=== PATIENT | male | born 1955 | race Caucasian/White ===

== ENCOUNTER 2017-01-10 08:17 | Inpatient (IN) | payer OTHER ==
[2017-01-10 09:00] VITALS: BMI 29.5
--- NOTE | 2017-01-10 11:03 | HP ---
COWS - Scale Resting Pulse: 1= [place] 81-100 Sweatin=Flushed/Facial Moisture Restless Observation: 1= Difficult to Sit Still Pupil Size: 0= Normal to Room Light Bone or Joint Aches: 2= Severe Diffuse Aches Runny Nose/ Eye Tearin= Runny Nose/Eyes GI Upset > 30mins: 0= None Tremor Observation: 2= Slight Tremor Visible Yawning Observation: 2= >3x During Session Anxiety or Irritability: 2=Irritable/Anxious Goose Flesh Skin: 3=Piloerection COWS Score: 17 CIWA Score - CIWA Score Nausea/Vomitin-No Nausea/No Vomiting Muscle Tremors: 4-Moderate,w/Arms Extend Anxiety: 3 Agitation: 4-Moderately Restless Paroxysmal Sweats: 3 Orientation: 0-Oriented Tacttile Disturbances: 0-None Auditory Disturbances: 0-None Visual Disturbances: 0-None Headache: 1-Very Mild CIWA-Ar Total Score: 15 Admission ROS BHS - HPI Chief Complaint: I need help. Allergies/Adverse Reactions: Allergies Allergy/AdvReac Type Severity Reaction Status Date / Time No Known Allergies Allergy Verified 01/10/17 10:29 History of Present Illness: pt is a 61yr old male with a history of oxycodone and alcohol dependence seeking detox for treatment. This is his first visit in detox. Exam Limitations: No Limitations - Ebola screening Have you traveled outside of the country in the last 21 days: No Have you had contact with anyone from an Ebola affected area: No Have you been sick,other than usual withdrawal symptoms: No Do you have a fever: No - Review of Systems Constitutional: Chills, Night Sweats EENT: reports: No Symptoms Reported Respiratory: reports: No Symptoms reported Cardiac: reports: No Symptoms Reported GI: reports: Constipated, Poor Fluid Intake : reports: No Symptoms Reported Musculoskeletal: reports: Back Pain Integumentary: reports: Flushing, Sweating Neuro: reports: Tingling, Tremors Endocrine: reports: Excessive Sweating, Flushing, Intolerance to Cold, Intolerance to Heat Hematology: reports: No Symptoms Reported Psychiatric: reports: Judgement Intact, Mood/Affect Appropiate, Orientated x3, Agitated, Anxious Other Systems: Reviewed and Negative Patient History - Patient Medical History Hx Asthma: No Hx Chronic Obstructive Pulmonary Disease (COPD): No Hx Cancer: No Hx Cardiac Disorders: No Hx Hypertension: Yes Hx Hypercholesterolemia: Yes Hx Pacemaker: No HX Cerebrovascular Accident: No Hx Seizures: No Hx Dementia: No Hx Diabetes: No Hx Gastrointestinal Disorders: No Hx Liver Disease: No Hx Genitourinary Disorders: No Hx Sexually Transmitted Disorders: No Hx Renal Disease (ESRD): No Hx Thyroid Disease: No Hx Human Immunodeficiency Virus (HIV): No (negative) Hx Hepatitis C: No (negative) Hx Depression: No Hx Suicide Attempt: No (denies) Hx Bipolar Disorder: No Hx Schizophrenia: No - Patient Surgical History Past Surgical History: No Hx Neurologic Surgery: No Hx Cataract Extraction: No Hx Cardiac Surgery: No Hx Lung Surgery: No Hx Breast Surgery: No Hx Breast Biopsy: No Hx Abdominal Surgery: No Hx Appendectomy: No Hx Cholecystectomy: No Hx Genitourinary Surgery: No Hx Section: No Hx Orthopedic Surgery: No Other Surgical History: laminectomy surgery 07/2016 Anesthesia Reaction: No - PPD History Previous Implant?: Yes Documented Results: Negative w/o proof Implanted On Prior R Admission?: No PPD to be Administered?: Yes - Reproductive History Patient is a Female of Child Bearing Age (11 -55 yrs old): No - Smoking Cessation Smoking history: Current every day smoker Have you smoked in the past 12 months: Yes Aproximately how many cigarettes per day: 4 Hx Chewing Tobacco Use: No Initiated information on smoking cessation: Yes 'Breaking Loose' booklet given: 01/10/17 - Substance & Tx. History Hx Alcohol Use: Yes Hx Substance Use: Yes Substance Use Type: Alcohol, Opiates Hx Substance Use Treatment: No - Substances Abused Oxycodone Route: Oral Frequency: Daily Amount used: 1-2 tabs. (30 mg.) Age of first use: 61 Date of Last Use: 01/09/17 Alcohol-vodla Route: Oral Amount used: 3/4 pt. Age of first use: 29 Date of Last Use: 01/09/17 Family Disease History - Family Disease History Family Disease History: Heart Disease: Father () Admission Physical Exam BHS - Vital Signs Vital Signs: Vital Signs - 24 hr 01/10/17 01/10/17 08:42 08:56 Temperature 97 F L 97.3 F L Pulse Rate 100 H 60 Respiratory 18 18 Rate Blood Pressure 174/90 160/84 - Physical General Appearance: Yes: Appropriately Dressed, Moderate Distress, Obese, Tremorous, Irritable, Sweating, Anxious HEENTM: Yes: Hearing grossly Normal, Normal Voice Respiratory: Yes: Lungs Clear, Normal Breath Sounds, No Respiratory Distress Neck: Yes: Within Normal Limits Breast: Yes: Within Normal Limits Cardiology: Yes: Regular Rhythm, Regular Rate, S1, S2 Abdominal: Yes: Normal Bowel Sounds Genitourinary: Yes: Within Normal Limits Back: Yes: Normal Inspection Musculoskeletal: Yes: Back pain Extremities: Yes: Normal Capillary Refill, Normal Inspection, Non-Tender, Tremors Neurological: Yes: Fully Oriented, Alert, Normal Response Integumentary: Yes: Normal Color, Diaphoresis Lymphatic: Yes: Within Normal Limits - Diagnostic (1) Alcohol dependence with uncomplicated withdrawal Current Visit: Yes Status: Chronic (2) Hyperlipidemia Current Visit: Yes Status: Chronic Qualifiers: Hyperlipidemia type: pure hypercholesterolemia Qualified Code(s): E78.00 - Pure hypercholesterolemia, unspecified; E78.0 - Pure hypercholesterolemia (3) Hypertension Current Visit: Yes Status: Chronic Qualifiers: Hypertension type: essential hypertension Qualified Code(s): I10 - Essential (primary) hypertension (4) Neuropathy Current Visit: Yes Status: Chronic (5) Nicotine dependence Current Visit: Yes Status: Chronic Qualifiers: Nicotine product type: cigarettes Substance use status: uncomplicated Qualified Code(s): F17.210 - Nicotine dependence, cigarettes, uncomplicated (6) Opioid dependence with withdrawal Current Visit: Yes Status: Chronic (7) Obese Current Visit: Yes Status: Chronic Qualifiers: Obesity type: unspecified obesity type Cleared for Admission S - Detox or Rehab [facility] Level of Care: Medically Managed Detox Regimen/Protocol: Methadone/Librium S Breath Alcohol Content Breath Alcohol Content: 0 Urine Drug Screen - Results Drug Screen Negative: No Urine Drug Screen Results: RAVEN-Cocaine, OPI-Opiates
[2017-01-10] MEDS ORDERED: LOPERAMIDE HCL 2 MG CAPSULE PO PRN (11:14)
[2017-01-10] MEDS ORDERED: chlordiazePOXIDE HCL 25 MG CAPSULE PO PRN (11:14)
[2017-01-10] MEDS ORDERED: ACETAMINOPHEN 325 MG TABLET (FP) PO PRN (11:14)
[2017-01-10] MEDS ORDERED: hydrOXYzine PAMOATE 50 MG CAPSULE (FP) PO PRN (11:14)
[2017-01-10] MEDS ORDERED: guaiFENesin/D-METHORPHAN HB 10 ML UNIT-DOSE CUPS PO PRN (11:14)
[2017-01-10] MEDS ORDERED: MAGNESIUM CITRATE 300 ML BOTTLE PO PRN (11:14)
[2017-01-10] MEDS ORDERED: P-EPHED 60MG/TRIPROLIDI 2.5MG TABLET PO PRN (11:14)
[2017-01-10] MEDS ORDERED: IBUPROFEN 400 MG TABLET (FP) PO PRN (11:14)
[2017-01-10] MEDS ORDERED: MENTHOL/PHENOL 1 EACH UD MM PRN (11:14)
[2017-01-10] MEDS ORDERED: MAG HYDROX/AL HYDROX/SIMETH 30 ML UNIT-DOSE CUP PO PRN (11:14)
[2017-01-10] MEDS ORDERED: MAGNESIUM HYDROX 2400MG/30ML ORAL SUSPENSION 30 ML CUP PO PRN (11:14)
[2017-01-10] MEDS ORDERED: chlordiazePOXIDE HCL 25 MG CAPSULE PO ONE (11:37)
[2017-01-10] MEDS ORDERED: METHADONE HCL 10 MG TABLET (FOR DETOX USE ONLY) PO ONE ×2 (11:38→23:00)
[2017-01-10 13:45] LABS: MCH 30.3 pg (25.7-33.7); MCHC 33.2 g/dl (32.0-35.9); MEAN CELL VOLUME 91.3 fl (80-96); MEAN PLT VOLUME 8.1 fl (7.5-11.1); PLATELET COUNT 243 K/MM3 (134-434); RDW 14.4 % (11.9-15.9); WHITE BLOOD COUNT 9.1 K/mm3 (4.0-10.0)
[2017-01-10 13:58] LABS: ANION GAP 7 (8-16); CALCIUM 9.2 mg/dL (8.5-10.1); CO2 30 mmol/L (21-32); GLUCOSE,RANDOM 150 mg/dL (74-106)
[2017-01-10 14:02] LABS: ALK PHOS 104 U/L (45-117); BILIRUBIN,TOTAL 0.6 mg/dL (0.2-1.0); CREATININE 1.1 mg/dL (0.7-1.3); SGOT/AST 72 U/L (15-37); SGPT/ALT 88 U/L (12-78); TOT PROT 7.6 g/dl (6.4-8.2)
[2017-01-10 15:38] LABS: THYROID STIMULATING HORMONE 0.93 uIU/ml (0.358-3.74)
[2017-01-10 17:03] LABS: URINE APPEARANCE CLEAR; URINE BILIRUBIN NEGATIVE (NEGATIVE); URINE BLOOD NEGATIVE (NEGATIVE); URINE COLOR YELLOW; URINE GLUCOSE (UA) NEGATIVE (NEGATIVE); URINE KETONE NEGATIVE (NEGATIVE); URINE LEUK ESTERASE NEGATIVE (NEGATIVE); URINE NITRITE NEGATIVE (NEGATIVE); URINE PROTEIN NEGATIVE (NEGATIVE); URINE UROBILINOGEN NEGATIVE mg/dL (0.2-1.0)
--- NOTE | 2017-01-10 17:47 | EKG ---
Test Reason : Blood Pressure : / mmHG Vent. Rate : 090 BPM Atrial Rate : 090 BPM P-R Int : 178 ms QRS Dur : 098 ms QT Int : 362 ms P-R-T Axes : 068 063 046 degrees QTc Int : 442 ms NORMAL SINUS RHYTHM INCOMPLETE RIGHT BUNDLE BRANCH BLOCK BORDERLINE ECG NO PREVIOUS ECGS AVAILABLE Confirmed by REGI CAMP, GRACIE ([id number]) on 01/10/2017 5:46:50 PM Referred By: Confirmed By:GRACIE DELUNA MD
[2017-01-10] MEDS: chlordiazePOXIDE HCL 25 MG CAPSULE PO SCH ×2 (17:55→22:39)
[2017-01-10] MEDS: NICOTINE POLACRILEX 4 MG GUM BUC PRN ×2 (18:30→22:51)
[2017-01-10] MEDS: THIAMINE HCL 100 MG TABLET (FP) PO SCH (22:39)
[2017-01-10] MEDS: DOCUSATE SODIUM 100 MG CAPSULE (FP) PO SCH (22:39)
[2017-01-10] MEDS: GABAPENTIN 300 MG CAPSULE (FP) PO SCH (22:39)
[2017-01-10] MEDS: ATORVASTATIN CA 40 MG TABLET (FP) PO SCH (22:39)
[2017-01-10] MEDS: diphenhydrAMINE HCL 50 MG CAPSULE PO PRN (22:41)
[2017-01-11] MEDS: diphenhydrAMINE HCL 50 MG CAPSULE PO PRN (00:35)
[2017-01-11] MEDS: CYCLOBENZAPRINE HCL 10 MG TABLET (FP) PO PRN ×2 (01:40→22:08)
[2017-01-11] MEDS: chlordiazePOXIDE HCL 25 MG CAPSULE PO SCH (04:48)
--- NOTE | 2017-01-11 09:56 | PN ---
[facility] CIWA - CIWA Score Nausea/Vomitin Muscle Tremors: 3 Anxiety: 3 Agitation: 3 Paroxysmal Sweats: 1-Minimal Palms Moist Orientation: 0-Oriented Tacttile Disturbances: 1-Very Mild Itch/Numbness Auditory Disturbances: 1-Very Mild Visual Disturbances: 1-Very Mild Sensitivity Headache: 2-Mild CIWA-Ar Total Score: 18 BHS COWS - Scale Resting Pulse: 1= [place] 81-100 Sweatin= Chills/Flushing Restless Observation: 3= Extraneous Movement Pupil Size: 1= Pupils >than Normal Bone or Joint Aches: 2= Severe Diffuse Aches Runny Nose/ Eye Tearin= Runny Nose/Eyes GI Upset > 30mins: 2= Nausea/Diarrhea Tremor Observation of Outstretched Hands: 2= Slight Tremor Visible Yawning Observation: 2= >3x During Session Anxiety or Irritability: 2=Irritable/Anxious Goose Flesh Skin: 0=Smooth Skin COWS Score: 18 [facility] Progress Note (SOAP) Subjective: ALERT,IRRITABLE,ANXIOUS,INTERRUPTED SLEEP,PAIN IN THE BODY AND BACK Objective: 01/11/17 09:52 Vital Signs Temperature 96 F L 01/11/17 06:12 Pulse Rate 83 01/11/17 06:12 Respiratory Rate 18 01/11/17 06:12 Blood Pressure 119/79 01/11/17 06:12 O2 Sat by Pulse Oximetry (%) EKG NSR,INCOMPLETE RBBB NO CHEST PAIN,NO SOB,NO DIZZINESS 01/11/17 09:53 Laboratory Last Values WBC 9.1 K/mm3 (4.0-10.0) 01/10/17 11:50 RBC 4.81 M/mm3 (4.00-5.60) 01/10/17 11:50 Hgb 14.6 GM/dL (11.7-16.9) 01/10/17 11:50 Hct 43.9 % (35.4-49) 01/10/17 11:50 MCV 91.3 fl (80-96) 01/10/17 11:50 MCH 30.3 pg (25.7-33.7) 01/10/17 11:50 MCHC 33.2 g/dl (32.0-35.9) 01/10/17 11:50 RDW 14.4 % (11.9-15.9) 01/10/17 11:50 Plt Count 243 K/MM3 (134-434) 01/10/17 11:50 MPV 8.1 fl (7.5-11.1) 01/10/17 11:50 Sodium 138 mmol/L (136-145) 01/10/17 11:50 Potassium 3.9 mmol/L (3.5-5.1) 01/10/17 11:50 Chloride 101 mmol/L (98-107) 01/10/17 11:50 Carbon Dioxide 30 mmol/L (21-32) 01/10/17 11:50 Anion Gap 7 (8-16) L 01/10/17 11:50 BUN 17 mg/dL (7-18) 01/10/17 11:50 Creatinine 1.1 mg/dL (0.7-1.3) 01/10/17 11:50 Creat Clearance w eGFR > 60 (>60) 01/10/17 11:50 Random Glucose 150 mg/dL (74-106) H 01/10/17 11:50 Calcium 9.2 mg/dL (8.5-10.1) 01/10/17 11:50 Total Bilirubin 0.6 mg/dL (0.2-1.0) 01/10/17 11:50 AST 72 U/L (15-37) H 01/10/17 11:50 ALT 88 U/L (12-78) H 01/10/17 11:50 Alkaline Phosphatase 104 U/L (45-117) 01/10/17 11:50 Total Protein 7.6 g/dl (6.4-8.2) 01/10/17 11:50 Albumin 4.0 g/dl (3.4-5.0) 01/10/17 11:50 TSH 0.93 uIU/ml (0.358-3.74) 01/10/17 11:50 Urine Color Yellow 01/10/17 14:00 Urine Appearance Clear 01/10/17 14:00 Urine pH 5.0 (5.0-8.0) 01/10/17 14:00 Ur Specific [place] 1.025 (1.005-1.025) 01/10/17 14:00 Urine Protein Negative (NEGATIVE) 01/10/17 14:00 Urine Glucose (UA) Negative (NEGATIVE) 01/10/17 14:00 Urine Ketones Negative (NEGATIVE) 01/10/17 14:00 Urine Blood Negative (NEGATIVE) 01/10/17 14:00 Urine Nitrite Negative (NEGATIVE) 01/10/17 14:00 Urine Bilirubin Negative (NEGATIVE) 01/10/17 14:00 Urine Urobilinogen Negative mg/dL (0.2-1.0) 01/10/17 14:00 Ur Leukocyte Esterase Negative (NEGATIVE) 01/10/17 14:00 RPR Titer Nonreactive (NONREACTIVE) 01/10/17 11:50 Hepatitis C Antibody 0.2 s/co ratio (0.0-0.9) 01/10/17 11:50 Assessment: 01/11/17 09:54 WITHDRAWAL SYMPTOM Plan: CONTINUE DETOX,WOULD LIKE REGIMEN TO CHANGE TO METHADONE AND VALIUM,FASTING GLUCOSE IN AM INITIAL GLUCOSE IS 150
[2017-01-11] MEDS ORDERED: diazePAM 5 MG TABLET PO ONE (09:58)
[2017-01-11] MEDS ORDERED: METHADONE HCL 10 MG TABLET (FOR DETOX USE ONLY) PO SCH (10:00)
[2017-01-11] MEDS: PRENATAL VITAMINS W/ FOLIC ACID TABLET (FP) PO SCH (11:56)
[2017-01-11] MEDS: NICOTINE 21 MG/24 HOURS TOPICAL PATCH TD SCH (11:57)
[2017-01-11] MEDS: LISINOPRIL 20 MG TABLET (FP) PO SCH (11:57)
[2017-01-11] MEDS: HYDROCHLOROTHIAZIDE 12.5 MG CAPSULE (FP) PO SCH (11:57)
[2017-01-11] MEDS: ASPIRIN 81 MG CHEWABLE TABLETS PO SCH (11:57)
[2017-01-11] MEDS: diazePAM 5 MG TABLET PO SCH ×2 (13:57→22:09)
[2017-01-11] MEDS ORDERED: chlordiazePOXIDE HCL 25 MG CAPSULE PO SCH (17:00)
[2017-01-11] MEDS: diazePAM 5 MG TABLET PO PRN (17:43)
[2017-01-11] MEDS: NICOTINE POLACRILEX 4 MG GUM BUC PRN ×2 (18:03→22:09)
[2017-01-11] MEDS: GABAPENTIN 300 MG CAPSULE (FP) PO SCH (22:08)
[2017-01-11] MEDS: ATORVASTATIN CA 40 MG TABLET (FP) PO SCH (22:08)
[2017-01-11] MEDS: THIAMINE HCL 100 MG TABLET (FP) PO SCH (22:08)
[2017-01-11] MEDS: DOCUSATE SODIUM 100 MG CAPSULE (FP) PO SCH (22:09)
[2017-01-12] MEDS: diazePAM 5 MG TABLET PO SCH ×3 (06:03→22:38)
[2017-01-12] MEDS ORDERED: METHADONE HCL 5 MG TABLET (FOR DETOX USE ONLY) PO SCH (10:00)
--- NOTE | 2017-01-12 10:20 | PN ---
[facility] CIWA - CIWA Score Nausea/Vomitin Muscle Tremors: 3 Anxiety: 3 Agitation: 2 Paroxysmal Sweats: 1-Minimal Palms Moist Orientation: 0-Oriented Tacttile Disturbances: 1-Very Mild Itch/Numbness Auditory Disturbances: 1-Very Mild Visual Disturbances: 1-Very Mild Sensitivity Headache: 2-Mild CIWA-Ar Total Score: 17 BHS COWS - Scale Resting Pulse: 2= [place] 101-120 Sweatin= Chills/Flushing Restless Observation: 3= Extraneous Movement Pupil Size: 1= Pupils >than Normal Bone or Joint Aches: 2= Severe Diffuse Aches Runny Nose/ Eye Tearin= Runny Nose/Eyes GI Upset > 30mins: 2= Nausea/Diarrhea Tremor Observation of Outstretched Hands: 2= Slight Tremor Visible Yawning Observation: 1= 1-2x During Session Anxiety or Irritability: 2=Irritable/Anxious Goose Flesh Skin: 0=Smooth Skin COWS Score: 18 [facility] Progress Note (SOAP) Subjective: alert,irritable,anxious,interrupted sleep,tremor,pain in the body and back Objective: 01/12/17 10:17 Vital Signs Temperature 96.6 F L 01/12/17 10:03 Pulse Rate 110 H 01/12/17 10:03 Respiratory Rate 20 01/12/17 10:03 Blood Pressure 129/98 01/12/17 10:03 O2 Sat by Pulse Oximetry (%) 01/12/17 10:18 Laboratory Last Values WBC 9.1 K/mm3 (4.0-10.0) 01/10/17 11:50 RBC 4.81 M/mm3 (4.00-5.60) 01/10/17 11:50 Hgb 14.6 GM/dL (11.7-16.9) 01/10/17 11:50 Hct 43.9 % (35.4-49) 01/10/17 11:50 MCV 91.3 fl (80-96) 01/10/17 11:50 MCH 30.3 pg (25.7-33.7) 01/10/17 11:50 MCHC 33.2 g/dl (32.0-35.9) 01/10/17 11:50 RDW 14.4 % (11.9-15.9) 01/10/17 11:50 Plt Count 243 K/MM3 (134-434) 01/10/17 11:50 MPV 8.1 fl (7.5-11.1) 01/10/17 11:50 Sodium 138 mmol/L (136-145) 01/10/17 11:50 Potassium 3.9 mmol/L (3.5-5.1) 01/10/17 11:50 Chloride 101 mmol/L (98-107) 01/10/17 11:50 Carbon Dioxide 30 mmol/L (21-32) 01/10/17 11:50 Anion Gap 7 (8-16) L 01/10/17 11:50 BUN 17 mg/dL (7-18) 01/10/17 11:50 Creatinine 1.1 mg/dL (0.7-1.3) 01/10/17 11:50 Creat Clearance w eGFR > 60 (>60) 01/10/17 11:50 Random Glucose 150 mg/dL (74-106) H 01/10/17 11:50 Calcium 9.2 mg/dL (8.5-10.1) 01/10/17 11:50 Total Bilirubin 0.6 mg/dL (0.2-1.0) 01/10/17 11:50 AST 72 U/L (15-37) H 01/10/17 11:50 ALT 88 U/L (12-78) H 01/10/17 11:50 Alkaline Phosphatase 104 U/L (45-117) 01/10/17 11:50 Total Protein 7.6 g/dl (6.4-8.2) 01/10/17 11:50 Albumin 4.0 g/dl (3.4-5.0) 01/10/17 11:50 TSH 0.93 uIU/ml (0.358-3.74) 01/10/17 11:50 Urine Color Yellow 01/10/17 14:00 Urine Appearance Clear 01/10/17 14:00 Urine pH 5.0 (5.0-8.0) 01/10/17 14:00 Ur Specific [place] 1.025 (1.005-1.025) 01/10/17 14:00 Urine Protein Negative (NEGATIVE) 01/10/17 14:00 Urine Glucose (UA) Negative (NEGATIVE) 01/10/17 14:00 Urine Ketones Negative (NEGATIVE) 01/10/17 14:00 Urine Blood Negative (NEGATIVE) 01/10/17 14:00 Urine Nitrite Negative (NEGATIVE) 01/10/17 14:00 Urine Bilirubin Negative (NEGATIVE) 01/10/17 14:00 Urine Urobilinogen Negative mg/dL (0.2-1.0) 01/10/17 14:00 Ur Leukocyte Esterase Negative (NEGATIVE) 01/10/17 14:00 RPR Titer Nonreactive (NONREACTIVE) 01/10/17 11:50 Hepatitis C Antibody 0.2 s/co ratio (0.0-0.9) 01/10/17 11:50 Assessment: 01/12/17 10:17 01/12/17 10:18 withdrawal symptom Plan: continue detox,fasting glucose pending,less withdrawal symptom,adjust methadone regimen
[2017-01-12] MEDS: diazePAM 5 MG TABLET PO PRN ×2 (10:27→16:26)
[2017-01-12] MEDS: ASPIRIN 81 MG CHEWABLE TABLETS PO SCH (10:27)
[2017-01-12] MEDS: NICOTINE 21 MG/24 HOURS TOPICAL PATCH TD SCH (10:28)
[2017-01-12] MEDS: HYDROCHLOROTHIAZIDE 12.5 MG CAPSULE (FP) PO SCH (10:28)
[2017-01-12] MEDS: LISINOPRIL 20 MG TABLET (FP) PO SCH (10:28)
[2017-01-12] MEDS: CYCLOBENZAPRINE HCL 10 MG TABLET (FP) PO PRN ×2 (10:28→22:37)
[2017-01-12] MEDS: PRENATAL VITAMINS W/ FOLIC ACID TABLET (FP) PO SCH (10:28)
[2017-01-12] MEDS ORDERED: METHADONE HCL 5 MG TABLET (FOR DETOX USE ONLY) PO ONE (10:33)
[2017-01-12] MEDS: NICOTINE POLACRILEX 4 MG GUM BUC PRN ×3 (10:34→22:41)
[2017-01-12] MEDS ORDERED: chlordiazePOXIDE 5 MG CAPSULE PO SCH (17:00)
[2017-01-12] MEDS ORDERED: ATORVASTATIN CA 20 MG TABLET (FP) ONE (21:20)
[2017-01-12] MEDS: ATORVASTATIN CA 40 MG TABLET (FP) PO SCH (22:37)
[2017-01-12] MEDS: GABAPENTIN 300 MG CAPSULE (FP) PO SCH (22:38)
[2017-01-12] MEDS: DOCUSATE SODIUM 100 MG CAPSULE (FP) PO SCH (22:38)
[2017-01-12] MEDS: THIAMINE HCL 100 MG TABLET (FP) PO SCH (22:38)
--- NOTE | 2017-01-13 08:41 | PN ---
S Progress Note (SOAP) Subjective: ALERT,NO COMPLAINT Objective: 01/13/17 08:39 Vital Signs Temperature 97.3 F L 01/13/17 06:12 Pulse Rate 83 01/13/17 06:12 Respiratory Rate 18 01/13/17 06:12 Blood Pressure 106/67 01/13/17 06:12 O2 Sat by Pulse Oximetry (%) 01/13/17 08:39 FASTING BLOOD GLUCOSE IS 120 Assessment: 01/13/17 08:39 NO WITHDRAWAL SYMPTOM Plan: DISCHARGE TODAY
--- NOTE | 2017-01-13 08:45 | DS ---
[facility] Detox Discharge Summary Admission Date: 01/10/17 - History Present History: Alcohol Dependence, Opioid Dependence Additional Comments: FOLLOW UP WITH AFTER CARE PROGRAM ARRANGEMENT Pertinent Past History: HYPERLIPIDEMIA HYPERTENSION NEUROPATHY NICOTINE DEPENDENCE OBESITY - Physical Exam Results Vital Signs: Vital Signs Temperature 97.3 F L 01/13/17 06:12 Pulse Rate 83 01/13/17 06:12 Respiratory Rate 18 01/13/17 06:12 Blood Pressure 106/67 01/13/17 06:12 O2 Sat by Pulse Oximetry (%) Pertinent Admission Physical Exam Findings: WITHDRAWAL SYMPTOM - Treatment Hospital Course: Detox Protocol Followed, Detoxed Safely, Responded well, Discharged Condition Good Patient has Accepted a Rehab Referral to: DECLINED - Medication Discharge Medications: Ambulatory Orders Aspirin [ASA -] 81 mg PO DAILY 01/10/17 Colesevelam HCl [Welchol (Nf)] 625 mg PO DAILY 01/10/17 Docusate Sodium [Colace -] 100 mg PO HS 01/10/17 Gabapentin [Neurontin -] 300 mg PO HS 01/10/17 Hydrochlorothiazide [Hctz -] 12.5 mg PO DAILY 01/10/17 Lisinopril [Prinivil] 20 mg PO DAILY 01/10/17 Magnesium Oxide [Magnesium] 500 mg PO HS 01/10/17 Rosuvastatin [Crestor -] 10 mg PO HS 01/10/17 - Diagnosis (1) Alcohol dependence with uncomplicated withdrawal Current Visit: Yes Status: Chronic (2) Hyperlipidemia Current Visit: Yes Status: Chronic Qualifiers: Hyperlipidemia type: pure hypercholesterolemia Qualified Code(s): E78.00 - Pure hypercholesterolemia, unspecified; E78.0 - Pure hypercholesterolemia (3) Hypertension Current Visit: Yes Status: Chronic Qualifiers: Hypertension type: essential hypertension Qualified Code(s): I10 - Essential (primary) hypertension (4) Neuropathy Current Visit: Yes Status: Chronic (5) Nicotine dependence Current Visit: Yes Status: Chronic Qualifiers: Nicotine product type: cigarettes Substance use status: uncomplicated Qualified Code(s): F17.210 - Nicotine dependence, cigarettes, uncomplicated (6) Obese Current Visit: Yes Status: Chronic Qualifiers: Obesity type: unspecified obesity type (7) Opioid dependence with withdrawal Current Visit: Yes Status: Chronic - AMA Did Patient Leave Against Medical Advice: No
--- NOTE | 2017-01-13 08:51 | PN ---
[facility] Progress Note Note: ADDENDUM PATIENT STILL ON MEDICATION,WITHDRAWAL SYMPTOM,DISCHARGE IN AM
[2017-01-13] MEDS ORDERED: METHADONE HCL 10 MG TABLET (FOR DETOX USE ONLY) PO ONE (10:00)
[2017-01-13] MEDS: ASPIRIN 81 MG CHEWABLE TABLETS PO SCH (10:59)
[2017-01-13] MEDS: HYDROCHLOROTHIAZIDE 12.5 MG CAPSULE (FP) PO SCH (11:00)
[2017-01-13] MEDS: diazePAM 5 MG TABLET PO SCH ×2 (11:00→22:21)
[2017-01-13] MEDS: LISINOPRIL 20 MG TABLET (FP) PO SCH (11:00)
[2017-01-13] MEDS: PRENATAL VITAMINS W/ FOLIC ACID TABLET (FP) PO SCH (11:00)
[2017-01-13] MEDS: NICOTINE 21 MG/24 HOURS TOPICAL PATCH TD SCH (11:01)
[2017-01-13] MEDS: diazePAM 5 MG TABLET PO PRN ×2 (15:27→19:55)
[2017-01-13] MEDS ORDERED: chlordiazePOXIDE HCL 10 MG CAPSULE PO SCH (17:00)
[2017-01-13] MEDS: THIAMINE HCL 100 MG TABLET (FP) PO SCH (22:21)
[2017-01-13] MEDS: DOCUSATE SODIUM 100 MG CAPSULE (FP) PO SCH (22:21)
[2017-01-13] MEDS: CYCLOBENZAPRINE HCL 10 MG TABLET (FP) PO PRN (22:21)
[2017-01-13] MEDS: GABAPENTIN 300 MG CAPSULE (FP) PO SCH (22:21)
[2017-01-13] MEDS: ATORVASTATIN CA 40 MG TABLET (FP) PO SCH (22:21)
[2017-01-14] MEDS ORDERED: METHADONE HCL 5 MG TABLET (FOR DETOX USE ONLY) PO ONE (06:00)
[2017-01-14 06:27] VITALS: BP 139/86; PULSE 107; TEMP 97.2
--- NOTE | 2017-01-14 08:23 | DS ---
[facility] Detox Discharge Summary Admission Date: 01/10/17 Discharge Date: 01/14/17 - History Present History: Alcohol Dependence, Opioid Dependence Additional Comments: follow up with after care program as arrangement Pertinent Past History: hypertension hyperlipidemia nicotine dependence obesity low back pain neuropathy - Physical Exam Results Vital Signs: Vital Signs Temperature 97.2 F L 01/14/17 06:27 Pulse Rate 107 H 01/14/17 06:27 Respiratory Rate 18 01/14/17 06:27 Blood Pressure 139/86 01/14/17 06:27 O2 Sat by Pulse Oximetry (%) Pertinent Admission Physical Exam Findings: withdrawal finding - Treatment Hospital Course: Detox Protocol Followed, Detoxed Safely, Responded well, Discharged Condition Good Patient has Accepted a Rehab Referral to: declined - Medication Discharge Medications: Ambulatory Orders Aspirin [ASA -] 81 mg PO DAILY 01/10/17 Colesevelam HCl [Welchol (Nf)] 625 mg PO DAILY 01/10/17 Docusate Sodium [Colace -] 100 mg PO HS 01/10/17 Gabapentin [Neurontin -] 300 mg PO HS 01/10/17 Hydrochlorothiazide [Hctz -] 12.5 mg PO DAILY 01/10/17 Lisinopril [Prinivil] 20 mg PO DAILY 01/10/17 Magnesium Oxide [Magnesium] 500 mg PO HS 01/10/17 Rosuvastatin [Crestor -] 10 mg PO HS 01/10/17 Atorvastatin Ca [Lipitor] 40 mg PO HS tablet 01/13/17 - Diagnosis (1) Alcohol dependence with uncomplicated withdrawal Current Visit: Yes Status: Chronic (2) Hyperlipidemia Current Visit: Yes Status: Chronic Qualifiers: Hyperlipidemia type: pure hypercholesterolemia Qualified Code(s): E78.00 - Pure hypercholesterolemia, unspecified; E78.0 - Pure hypercholesterolemia (3) Hypertension Current Visit: Yes Status: Chronic Qualifiers: Hypertension type: essential hypertension Qualified Code(s): I10 - Essential (primary) hypertension (4) Neuropathy Current Visit: Yes Status: Chronic (5) Nicotine dependence Current Visit: Yes Status: Chronic Qualifiers: Nicotine product type: cigarettes Substance use status: uncomplicated Qualified Code(s): F17.210 - Nicotine dependence, cigarettes, uncomplicated (6) Obese Current Visit: Yes Status: Chronic Qualifiers: Obesity type: unspecified obesity type (7) Opioid dependence with withdrawal Current Visit: Yes Status: Chronic (8) Low back pain Current Visit: Yes Status: Acute - AMA Did Patient Leave Against Medical Advice: No
[2017-01-14] MEDS ORDERED: METHADONE HCL 10 MG TABLET (FOR DETOX USE ONLY) PO SCH (10:00)
[2017-01-15] MEDS ORDERED: METHADONE HCL 5 MG TABLET (FOR DETOX USE ONLY) PO SCH (06:00)
[2017-01-15] MEDS ORDERED: diazePAM 5 MG TABLET PO SCH (10:00)
== END 2017-01-14 08:47 | disposition home or self-care (01) | DRG 773 ==
LOC: YASAS 08:17 → Y6N 11:33
PROVIDERS: ADMIT Internal Medicine; ATTEND Internal Medicine
PROC: HZ2ZZZZ Detoxification Services for Substance Abuse Treatment (ICD-10-PCS; principal; 2017-01-10)
DX: F11.23 Opioid dependence with withdrawal (principal); F10.230 Alcohol dependence with withdrawal, uncomplicated; F17.210 Nicotine dependence, cigarettes, uncomplicated; E78.5 Hyperlipidemia, unspecified; I10 Essential (primary) hypertension; I45.19 Other right bundle-branch block; G62.9 Polyneuropathy, unspecified; E66.9 Obesity, unspecified; Z68.29 Body mass index [BMI] 29.0-29.9, adult; M54.5 Low back pain; Z79.82 Long term (current) use of aspirin
CPT/HCPCS: 36415; 80053; 81003; 82947; 84443; 85027; 86593; 86803; 93005; 93010